=== PATIENT | male | born 1990 | race Caucasian/White ===

== ENCOUNTER 2018-05-02 19:42 | Emergency (ER) | payer OTHER ==
[~2018-05-02] VITALS: Ht 165.1 cm; Wt 77.1 kg
[~2018-05-02 19:42] MED LIST: CEFU50SU PO; HYDACE5 PO; IBUP800 PO; PRED10 PO; SULF10OPSA OU
== END 2018-05-02 21:36 | disposition home or self-care (01) ==
LOC: ER 19:42
DX: T26.11XA Burn of cornea and conjunctival sac, right eye, initial encounter (principal); S05.01XA Injury of conjunctiva and corneal abrasion without foreign body, right eye, initial encounter; X58.XXXA Exposure to other specified factors, initial encounter
CPT/HCPCS: 96372; 99283; J1170

== ENCOUNTER 2020-03-26 14:16 | Emergency (ER) | payer OTHER ==
[~2020-03-26] VITALS: Ht 165.1 cm; Wt 81.7 kg
== END 2020-03-26 16:09 | disposition home or self-care (01) ==
LOC: ER 14:16
DX: R10.31 Right lower quadrant pain (principal)
CPT/HCPCS: 74176; 99283-25